=== PATIENT | male | born 1955 | race Caucasian/White ===

== ENCOUNTER 2018-01-06 17:26 | Emergency (ER) | payer OTHER, BC ==
[2018-01-06 17:37] VITALS: BP 135/85
--- NOTE | 2018-01-06 18:14 | XRAY Report ---
Procedure Date: 01/06/2018 Accession Number: [id number] / [id number] Procedure: XR - Shoulder 3 View LT CPT Code: FULL RESULT: EXAM: LEFT SHOULDER RADIOGRAPHY EXAM DATE: 01/06/2018 05:56 PM. CLINICAL HISTORY: Left shoulder pain after fall today. COMPARISON: None. TECHNIQUE: 3 views. FINDINGS: Bones: Normal. No fracture or bone lesion. Joints: The glenohumeral and acromioclavicular joints are normal. Type II acromion. Soft tissues: The visualized hemithorax is unremarkable. No soft tissue swelling. IMPRESSION: Normal shoulder radiography. [facility]
--- NOTE | 2018-01-06 18:38 | ED Physician Documentation ---
History of Present Illness - Stated complaint Stated Complaint: GLF/SHOULDER PX - Chief complaint Chief Complaint: Ext Problem - History obtained from History obtained from: Patient, Family - History of Present Illness Timing: Today, How many hours ago (2) Pain level max: 6 Pain level now: 4 Improved by: rest Worsened by: movement - Additonal information Additional information: L shoulder pain s/p fall at work today. Unable to use the L arm now. No history of L shoulder injury. Patient is ambidextrous. Review of Systems Constitutional: denies: Fever, Chills GI: denies: Vomiting Musculoskeletal: denies: Neck pain, Back pain Neurologic: denies: Focal weakness, Numbness, Headache PD PAST MEDICAL HISTORY - Past Medical History Past Medical History: No - Present Medications Home Medications: Ambulatory Orders Medication Instructions Recorded Confirmed No Known Home Medications [No 01/06/18 01/06/18 Known Home Medications] - Allergies Allergies/Adverse Reactions: Allergies Allergy/AdvReac Type Severity Reaction Status Date / Time codeine Allergy Hallucinati Verified 01/06/18 17:38 ons - Living Situation Living Situation: reports: With family Living Arrangement: reports: At home - Social History Does the pt have substance abuse?: No PD ED PE NORMAL - Vitals Vital signs reviewed: Yes - General General: Alert and oriented X 3, No acute distress - HEENT HEENT: Atraumatic, PERRL, Moist mucous membranes - Neck Neck: Supple, no meningeal sign, No bony TTP - Cardiac Cardiac: RRR - Respiratory Respiratory: No respiratory distress, Clear bilaterally - Derm Derm: Warm and dry - Extremities Extremities: Other (L shoulder - Mild diffuse tenderness, but does have significantly increased pain with active range of motion. Less pain with passive range of motion. No deformity. Neurovascularly intact. There is some tenderness along the glenohumeral joint. Axillary nerve intact.) - Neuro Neuro: Alert and oriented X 3 Results - Vitals Vitals: Vital Signs - 24 hr 01/06/18 17:35 Temperature 36.8 C Heart Rate 79 Respiratory 18 Rate Blood Pressure 135/85 H O2 Saturation 97 Oxygen O2 Source Room air - Rads (name of study) Left shoulder x-ray Radiology: Prelim report reviewed, EMP read contemporaneously, See rad report ( No acute abnormality) PD MEDICAL DECISION MAKING - ED course Complexity details: reviewed results, re-evaluated patient, considered differential, d/w patient ED course: Patient is a 62-year-old male with a left shoulder injury at work today. L and I paperwork filled out. Neurovascularly intact. Normal x-ray. Appears to be a soft tissue injury, sprain versus rotator cuff injury. We will have him follow-up with his doctor for further evaluation. Placed in a sling for comfort. Denies any pain medication here or for home. Patient counseled regarding signs and symptoms for which I believe and urgent re-evaluation would be necessary. Patient with good understanding of and agreement to plan and is comfortable going home at this time This document was made in part using voice recognition software. While efforts are made to proofread this document, sound alike and grammatical errors may occur. - Sepsis Event Vital Signs: Vital Signs - 24 hr 01/06/18 17:35 Temperature 36.8 C Heart Rate 79 Respiratory 18 Rate Blood Pressure 135/85 H O2 Saturation 97 Oxygen O2 Source Room air Departure - Departure Disposition: 01 Home, Self Care Clinical Impression: Sprain of shoulder, left Qualifiers: Encounter type: initial encounter Shoulder sprain type: unspecified sprain Qualified Code(s): S43.402A - Unspecified sprain of left shoulder joint, initial encounter Condition: Good Instructions: ED Sprain Shoulder Follow-Up: [facility] [Provider Group] [facility] [Provider Group] [facility] [Provider Group] Comments: Wear the sling for the next 3-4 days. Continue to gently range your shoulder while in the sling. Stop if this hurts. This should improve over the next week. Follow-up with your doctor or one of the clinics listed above for repeat evaluation after 1 week. Forms: Activity restrictions Discharge Date/Time: 01/06/18 18:47
== END 2018-01-06 18:47 | disposition home or self-care (01) ==
LOC: ED 17:26
DX: S43.402A Unspecified sprain of left shoulder joint, initial encounter (principal); W01.0XXA Fall on same level from slipping, tripping and stumbling without subsequent striking against object, initial encounter; Y93.89 Activity, other specified; Y99.0 Civilian activity done for income or pay
CPT/HCPCS: 99283

== ENCOUNTER 2020-03-30 08:38 | Day surgery (SDC) | payer BC ==
[2020-03-30] MEDS ORDERED: LACTATED RINGERS 1,000 ML IV ONE ×2 (09:18→11:19)
[2020-03-30] MEDS ORDERED: fentaNYL 250 MCG/5 ML VIAL IVP ONE (10:47)
[2020-03-30] MEDS ORDERED: MIDAZOLAM 2 MG/2 ML VIAL IVP ONE (10:47)
[2020-03-30 11:44] VITALS: BP 127/75
== END 2020-03-30 08:39 | disposition home or self-care (01) ==
LOC: SDS 08:38
PROVIDERS: ATTEND Surgery
DX: Z12.11 Encounter for screening for malignant neoplasm of colon (principal); K57.30 Diverticulosis of large intestine without perforation or abscess without bleeding
CPT/HCPCS: 45378; J3010; J7120

== ENCOUNTER 2021-06-30 20:42 | Emergency (ER) | payer MEDICARE, OTHER ==
[2021-06-30 20:49] VITALS: BP 160/72
[2021-06-30 21:03] LABS: RAPID STREP SCREEN Negative (Negative)
[2021-06-30] MEDS ORDERED: AMOX/CLAV 875 MG/125 MG TABLET PO STA (21:31)
[2021-06-30] MEDS ORDERED: LIDOCAINE VISCOUS 2% 15 ML UDC MM STA (21:32)
--- NOTE | 2021-06-30 21:34 | ED Physician Documentation ---
PD HPI HEENT - Stated complaint Stated Complaint: SORE THROAT - Chief complaint Chief Complaint: Heent - History obtained from History obtained from: Patient - Additional information Additional information: 66yM p/w throat pain, worse on the R, gradual onset and constant since yesterday afternoon. patient has chronic rhinorrhea and nasal congestion but denies cough or uri symptoms recently. does state he is having progressive constant aching pain in the throat, worse with swallowing. denies fevers, soa, stridor, cough. covid vaccinated. Review of Systems Constitutional: denies: Fever Throat: reports: Sore throat Respiratory: denies: Dyspnea, Cough PD PAST MEDICAL HISTORY - Past Medical History Past Medical History: Yes Cardiovascular: None Respiratory: None Endocrine/Autoimmune: None GI: None : None HEENT: None Psych: None Musculoskeletal: Osteoarthritis Derm: Psoriasis - Past Surgical History Past Surgical History: Yes General: Colonoscopy, Other Ortho: Shoulder arthroplasty, Arthroscopic surgery, Carpal Tunnel surgery HEENT: Cataracts - Present Medications Home Medications: Ambulatory Orders Medication Instructions Recorded Confirmed Amox/Clav 875/125 [Augmentin 1 tablet PO Q12H 7 Days #14 tablet 06/30/21 875/125 Tab] Gabapentin [Neurontin] 300 mg PO DAILY PRN 06/30/21 06/30/21 - Allergies Allergies/Adverse Reactions: Allergies Allergy/AdvReac Type Severity Reaction Status Date / Time codeine Allergy Hallucinati Verified 06/30/21 20:50 ons - Social History Does the pt smoke?: No Smoking Status: Never smoker Does the pt drink ETOH?: No Does the pt have substance abuse?: No - Immunizations Immunizations: TDAP >10years/unknown - POLST Patient has POLST: No PD ED PE NORMAL - Vitals Vital signs reviewed: Yes - General General: Alert and oriented X 3, No acute distress, Well developed/nourished - HEENT HEENT: Atraumatic, PERRL, EOMI, Moist mucous membranes, Other (mild R peritonsillar swelling. BL tonsillar mild enlargement) - Neck Neck: Supple, no meningeal sign, Other (normal upper airway sounds) Results - Vitals Vitals: Vital Signs - 24 hr 06/30/21 20:46 Temperature 36.7 C Heart Rate 66 Respiratory 16 Rate Blood Pressure 160/72 H O2 Saturation 97 Oxygen O2 Source Room air - Labs Labs: Laboratory Tests 06/30/21 20:51 Group A Strep Rapid Negative PD MEDICAL DECISION MAKING - ED course ED course: 66yM p/w tonsillar swelling and R peritonsillar mild irritation. patient is protecting airway, no stridor, no drooling, no submental tenderness or hardening. antibiotic rx provided. return precautions given. Departure - Departure Disposition: Home, Self Care Clinical Impression: Tonsillitis Condition: Good Instructions: ED Tonsillitis Follow-Up: JAY LOPEZ [Physician No Access] - Prescriptions: Amox/Clav 875/125 [Augmentin 875/125 Tab] 1 tablet PO Q12H 7 Days #14 tablet Comments: You were seen in the emergency department for swelling of the tonsils, worse on the right than the left. A first dose of antibiotics was given in the emergency department. Please follow up with Dr. Jay Lopez ([facility]) as needed if you do not have improvement with antibiotics in a few days. Return to the ED if you have new or worsening symptoms or other concerns.
== END 2021-06-30 21:47 | disposition home or self-care (01) ==
LOC: ED 20:42
DX: J03.90 Acute tonsillitis, unspecified (principal)
CPT/HCPCS: 87070; 87430; 99282; 99283; A9270

== ENCOUNTER 2021-07-26 10:06 | Emergency (ER) | payer MEDICARE, OTHER ==
[2021-07-26 10:24] VITALS: BP 118/64
[2021-07-26] MEDS ORDERED: SODIUM CHLORIDE 0.9% 1,000 ML IV STA (12:01)
[2021-07-26] MEDS ORDERED: DEXAMETHASONE 10 MG/ML VIAL IVP STA (12:02)
--- NOTE | 2021-07-26 12:35 | XRAY Report ---
PROCEDURE: Chest 1 View X-Ray INDICATIONS: chest pain TECHNIQUE: One view of the chest was acquired. COMPARISON: None. FINDINGS: SUPPORT DEVICES: None. LUNGS/PLEURA: Bilateral airspace opacities, concerning for pneumonic infiltrates. No pleural effusion or pneumothorax. MEDIASTINUM: The cardiomediastinal silhouette is within normal limits. BONES/SOFT TISSUES: No acute abnormality. IMPRESSION: 1.Bilateral pneumonic infiltrates. Reviewed by: Charan Mckenna MD on 07/26/2021 12:34 PM [facility] Approved by: Charan Mckenna MD on 07/26/2021 12:34 PM [facility] Station ID: [id number]
--- NOTE | 2021-07-26 12:48 | ED Physician Documentation ---
History of Present Illness - Stated complaint Stated Complaint: EXAUSTION,NAUSEA,SWEATING,COUGH - Chief complaint Chief Complaint: Resp - History obtained from History obtained from: Patient - History of Present Illness Timing: Today - Additonal information Additional information: 66-year-old male symptomatic with COVID symptoms for the past 11 days has had a positive COVID swab done 6 days ago and he is today feeling exhausted. He has nausea sweating and a cough. Review of Systems Constitutional: reports: Fever, Chills, Myalgias, Sweats Eyes: denies: Decreased vision Ears: denies: Ear pain Nose: reports: Congestion Throat: denies: Sore throat Cardiac: reports: Chest pain / pressure. denies: Palpitations, Pedal edema, Calf pain Respiratory: reports: Dyspnea, Cough GI: denies: Abdominal Pain, Nausea, Vomiting : reports: Dysuria. denies: Frequency PD PAST MEDICAL HISTORY - Past Medical History Cardiovascular: None Respiratory: None Endocrine/Autoimmune: None GI: None : None HEENT: None Psych: None Musculoskeletal: Osteoarthritis Derm: Psoriasis - Past Surgical History Past Surgical History: Yes General: Colonoscopy, Other Ortho: Shoulder arthroplasty, Arthroscopic surgery, Carpal Tunnel surgery HEENT: Cataracts - Present Medications Home Medications: Ambulatory Orders Medication Instructions Recorded Confirmed Amox/Clav 875/125 [Augmentin 1 tablet PO Q12H 7 Days #14 tablet 06/30/21 875/125 Tab] Gabapentin [Neurontin] 300 mg PO DAILY PRN 06/30/21 06/30/21 Azithromycin [Zithromax] 250 mg PO DAILY #6 tablet 07/26/21 Dexamethasone [Decadron] 6 mg PO DAILY #7 tablet 07/26/21 - Allergies Allergies/Adverse Reactions: Allergies Allergy/AdvReac Type Severity Reaction Status Date / Time codeine Allergy Hallucinati Verified 07/26/21 10:19 ons - Social History Does the pt smoke?: No Smoking Status: Never smoker Does the pt drink ETOH?: No Does the pt have substance abuse?: No - Immunizations Immunizations: TDAP >10years/unknown - POLST Patient has POLST: No PD ED PE NORMAL - Vitals Vital signs reviewed: Yes - General General: Alert and oriented X 3, No acute distress, Well developed/nourished - HEENT HEENT: Atraumatic, PERRL, EOMI - Neck Neck: Supple, no meningeal sign, No bony TTP - Cardiac Cardiac: RRR, No murmur - Respiratory Respiratory: Other (tachypneic with scattered wheezes.) - Abdomen Abdomen: Soft, Non tender - Back Back: No CVA TTP, No spinal TTP - Derm Derm: Normal color, Warm and dry, No rash - Extremities Extremities: No deformity, No edema - Neuro Neuro: Alert and oriented X 3, bar gauger and lubricator tender 2-12 intact, No motor deficit, No sensory deficit, Normal speech Eye Opening: Spontaneous Motor: Obeys Commands Verbal: Oriented GCS Score: 15 - Psych Psych: Normal mood, Normal affect Results - Vitals Vitals: Vital Signs - 24 hr 07/26/21 10:12 Temperature 36.9 C Heart Rate 62 Respiratory 24 Rate Blood Pressure 118/64 O2 Saturation 97 Oxygen O2 Source Room air - Labs Labs: Laboratory Tests 07/26/21 07/26/21 07/26/21 12:45 12:45 12:45 WBC 7.1 RBC 4.16 L Hgb 12.3 L Hct 36.5 L MCV 87.7 MCH 29.6 MCHC 33.7 RDW 11.7 L Plt Count 274 MPV 10.2 Neut # (Auto) 5.0 Lymph # (Auto) 1.0 L [place] # (Auto) 0.9 Eos # (Auto) 0.1 Baso # (Auto) 0.0 Absolute Nucleated RBC 0.00 Nucleated RBC % 0.0 Sodium 135 Potassium 4.0 Chloride 100 L Carbon Dioxide 26 Anion Gap 9.0 BUN 10 Creatinine 0.8 Estimated GFR (MDRD) 97 Glucose 100 Lactic Acid 1.0 Calcium 8.7 Total Bilirubin 0.7 AST 30 ALT 64 H Alkaline Phosphatase 52 Total Protein 6.9 Albumin 3.1 L Globulin 3.8 Albumin/Globulin Ratio 0.8 L Lipase 37 Urine Color Urine Clarity Urine pH Ur Specific [place] Urine Protein Urine Glucose (UA) Urine Ketones Urine Occult Blood Urine Nitrite Urine Bilirubin Urine Urobilinogen Ur Leukocyte Esterase Ur Microscopic Review Urine Culture Comments 07/26/21 13:20 WBC RBC Hgb Hct MCV MCH MCHC RDW Plt Count MPV Neut # (Auto) Lymph # (Auto) [place] # (Auto) Eos # (Auto) Baso # (Auto) Absolute Nucleated RBC Nucleated RBC % Sodium Potassium Chloride Carbon Dioxide Anion Gap BUN Creatinine Estimated GFR (MDRD) Glucose Lactic Acid Calcium Total Bilirubin AST ALT Alkaline Phosphatase Total Protein Albumin Globulin Albumin/Globulin Ratio Lipase Urine Color YELLOW Urine Clarity CLEAR Urine pH 8.0 H Ur Specific [place] 1.015 Urine Protein NEGATIVE Urine Glucose (UA) NEGATIVE Urine Ketones NEGATIVE Urine Occult Blood NEGATIVE Urine Nitrite NEGATIVE Urine Bilirubin NEGATIVE Urine Urobilinogen 2 H Ur Leukocyte Esterase NEGATIVE Ur Microscopic Review NOT INDICATED Urine Culture Comments NOT INDICATED - Rads (name of study) chest Radiology: Prelim report reviewed (Impression: 1. Bilateral pneumonic infiltrates.), EMP read indepedently, See rad report PD MEDICAL DECISION MAKING - ED course Complexity details: reviewed old records, reviewed results, re-evaluated patient, considered differential, d/w patient ED course: 66-year-old male on the 11th day of his COVID diagnosis is feeling fatigued continues to cough and is feeling weak. He appears dehydrated and his chest x- ray shows numerous pulmonic infiltrates. We will treat him for pneumonia as well and he has been given a dose of dexamethasone saline Rocephin and azithromycin. He responds to the IV saline as well. Departure - Departure Disposition: 01 Home, Self Care Clinical Impression: 2019 novel coronavirus-infected pneumonia (NCIP), Dehydration Condition: Stable Instructions: ED Pneumonia Adult, COVID-19 [facility], Flu and Cold: Nutrition, Prevention and Treatment Tips Follow-Up: Prem Hernandez DO [Primary Care Provider] - Prescriptions: Dexamethasone [Decadron] 6 mg PO DAILY #7 tablet Azithromycin [Zithromax] 250 mg PO DAILY #6 tablet Comments: Dago, today your chest x-ray has the appearance of COVID-pneumonia. We will need to add a conventional antibiotic to your treatment as it is difficult to tell whether there may be superinfection. This should be a simple antibiotic to take and you should only need to take this for 4 days. You do not need to start it until tomorrow. You were given a dose of dexamethasone here today and I have recommended you take another 6 mg daily for 1 week. We did find you were dehydrated today and recommendation is to drink extra fluids be certain to use Tylenol to treat fever as this will make you further dehydrated.
[2021-07-26] MEDS ORDERED: cefTRIAXone 1 GM in SODIUM CHLORIDE 0.9% MINIBAG 100 ML IV STA (12:51)
[2021-07-26] MEDS ORDERED: AZITHROMYCIN INJ 500 MG in SODIUM CHLORIDE 0.9% 250 ML IV STA (12:51)
[2021-07-26 12:54] LABS: BASOPHILS % (AUTO) 0.1 %; EOSINOPHILS # (AUTO) 0.1 10^3/uL (0.0-0.7); EOSINOPHILS % (AUTO) 1.8 %; HCT - HEMATOCRIT 36.5 % (42.0-52.0); HGB - HEMOGLOBIN 12.3 g/dL (14.0-18.0); LYMPHOCYTES % (AUTO) 13.5 %; MEAN CORPUSCULAR HEMOGLOBIN 29.6 pg (27.0-31.0); MEAN CORPUSCULAR HGB CONC 33.7 g/dL (32.0-36.0); MEAN CORPUSCULAR VOLUME 87.7 fL (80.0-94.0); MEAN PLATELET VOLUME 10.2 fL (7.4-11.4); MONOCYTES # (AUTO) 0.9 10^3/uL (0.0-1.0); MONOCYTES % (AUTO) 12.9 %; NEUTROPHILS % (AUTO) 71.3 %; PLT - PLATELET COUNT 274 10^3/uL (130-450); RED BLOOD COUNT 4.16 10^6/uL (4.70-6.10); RED CELL DISTRIBUTION WIDTH 11.7 % (12.0-15.0); WHITE BLOOD COUNT 7.1 x10^3/uL (4.8-10.8)
[2021-07-26 13:07] LABS: ALBUMIN 3.1 g/dL (3.2-5.5); ALBUMIN/GLOBULIN RATIO 0.8 (1.0-2.2); BILIRUBIN,TOTAL 0.7 mg/dL (0.2-1.0); CALCIUM 8.7 mg/dL (8.5-10.3); CREATININE 0.8 mg/dL (0.6-1.2); TOTAL PROTEIN 6.9 g/dL (6.7-8.2)
[2021-07-26 13:34] LABS: BILIRUBIN,URINE NEGATIVE (NEGATIVE); GLUCOSE, URINE (UA) NEGATIVE (NEGATIVE); KETONES,URINE (UA) NEGATIVE (NEGATIVE); LEUKOCYTE ESTERASE, URINE NEGATIVE (NEGATIVE); NITRITE,URINE NEGATIVE (NEGATIVE); OCCULT BLOOD,URINE NEGATIVE (NEGATIVE); PROTEIN,URINE NEGATIVE (NEGATIVE); UROBILINOGEN,URINE 2 E.U./dL (NORMAL)
[2021-07-26 13:52] LABS: CLARITY,URINE CLEAR (CLEAR)
== END 2021-07-26 14:55 | disposition home or self-care (01) ==
LOC: ED 10:06
DX: U07.1 COVID-19 (principal); J12.82 Pneumonia due to coronavirus disease 2019; E86.0 Dehydration
CPT/HCPCS: 36415; 80053; 81001; 81003; 83605; 83690; 85025; 87040; 87086; 96361; 96365; 96368; 96375; 99283

== ENCOUNTER 2023-07-22 08:24 | Day surgery (SDC) | payer MEDICARE, OTHER ==
[~2023-07-22 08:24] MED LIST: ceFAZolin 2 GM VIAL ONE
[2023-07-22] MEDS ORDERED: LIDOCAINE 2% URO-JET 5 ML SYRINGE UR ONE (08:38)
[2023-07-22] MEDS ORDERED: LACTATED RINGERS 1,000 ML IV ONE (09:10)
[2023-07-22] MEDS ORDERED: PROPOFOL 200 MG/20 ML VIAL IVP ONE (09:11)
[2023-07-22] MEDS ORDERED: LIDOCAINE-PF 2% 10 ML AMP SUBQ ONE (09:11)
[2023-07-22] MEDS ORDERED: ONDANSETRON 4 MG/2 ML VIAL ONE (09:11)
[2023-07-22] MEDS ORDERED: MIDAZOLAM 2 MG/2 ML VIAL ONE (09:11)
[2023-07-22] MEDS ORDERED: KETOROLAC 30 MG/ML VIAL ONE (09:11)
[2023-07-22] MEDS ORDERED: fentaNYL 100 MCG/2 ML VIAL ONE (09:12)
[2023-07-22] MEDS ORDERED: DEXAMETHASONE 4 MG/ML VIAL ONE (10:18)
[2023-07-22] MEDS ORDERED: LIDOCAINE 2% URO-JET 5 ML SYRINGE IV ONE (10:27)
[2023-07-22] MEDS ORDERED: SUGAMMADEX 200 MG/2 ML VIAL IVP ONE (10:36)
[2023-07-22] MEDS ORDERED: ROCURONIUM 50 MG/5 ML VIAL ONE (10:36)
--- NOTE | 2023-07-22 11:03 | ANESTHESIA ---
Pre-Anesthesia VS, & Labs - Diagnosis BPH - Procedure TURP Vital Signs: Temp Pulse Resp BP Pulse Ox O2 Flow Rate 36.4 C L 46 L 10 L 124/74 98 07/22/23 08:43 07/22/23 08:43 07/22/23 08:43 07/22/23 08:43 07/22/23 08:43 Height: 6 ft Weight (kg): 95 kg Body Mass Index: 28.4 BMI Classification: Overweight - NPO >8 hours Home Medications and Allergies Home Medications: Ambulatory Orders Rosuvastatin Calcium [Crestor] 40 mg PO DAILY 07/15/23 Gabapentin [Neurontin] 300 mg PO DAILY PRN 06/30/21 Rosuvastatin Calcium [Crestor] 40 mg PO DAILY 07/15/23 Allergies/Adverse Reactions: Allergies Allergy/AdvReac Type Severity Reaction Status Date / Time codeine Allergy Hallucinati Verified 07/22/23 08:56 ons Anes History & Medical History - Anesthetic History Anesthesia Complications: reports: No previous complications - Medical History Cardiovascular: reports: High cholesterol Pulmonary: reports: None Gastrointestinal: reports: None Urinary: reports: Benign prostate hypertrophy Neuro: reports: None Musculoskeletal: reports: Osteoarthritis Endocrine/Autoimmune: reports: None Blood Disorders: reports: None Skin: reports: Psoriasis Smoking Status: Never smoker Psychosocial: reports: No issues indicated History of Cancer?: No - Surgical History General: reports: Colonoscopy, Other Eyes Ears Nose Throat (EENT): reports: Cataracts Orthopedic: reports: Arthroscopic surgery, Carpal Tunnel surgery Exam General: Alert, Oriented x3, Cooperative, No acute distress Dental: WNL Mouth Openin Fingerbreadth Neck Mobility: Normal Mallampati classification: II Thyromental Distance: 4-6 cm Mental/Cognitive Status: Alert/Oriented X3, Normal for patient Plan Anesthesia Type: General Consent for Procedure(s) Verified and Reviewed: Yes Code Status: Attempt Resuscitation ASA classification: 2-Mild systemic disease Is this case an emergency?: No
[2023-07-22] MEDS ORDERED: MORPHINE 2 MG/ML CARPUJECT IVP PRN (11:08)
[2023-07-22] MEDS ORDERED: HYDROcod/ACETAM 5/325 MG TABLET PO PRN (11:08)
[2023-07-22] MEDS ORDERED: ONDANSETRON 4 MG/2 ML VIAL IVP PRN ×2 (11:08)
[2023-07-22] MEDS ORDERED: ATROPINE ABBOJECT 1 MG/10 ML SYRINGE IVP PRN (11:08)
[2023-07-22] MEDS ORDERED: HYDROmorphone 0.5 MG/0.5 ML SYRINGE IVP PRN (11:08)
[2023-07-22] MEDS ORDERED: fentaNYL 100 MCG/2 ML VIAL IVP PRN (11:08)
[2023-07-22] MEDS ORDERED: NALOXONE 0.4 MG/ML VIAL IVP PRN (11:08)
--- NOTE | 2023-07-22 11:18 | Discharge Plan ---
Discharge Plan Problem Reviewed?: Yes Disposition: Home, Self Care Condition: Good Prescriptions: Docusate Sodium 100Mg Capsule [Colace 100Mg Capsule] 100 mg PO DAILY #7 cap HYDROcod/ACETAM 5/325 [[place] 5/325] 1 tab PO Q4H PRN #10 tablet PRN Reason: Pain oxyBUTYnin chloride [Oxybutynin Chloride] 5 mg PO Q8H PRN #16 tab PRN Reason: Bladder Spasms Diet: Regular Activity Restrictions: No Restrictions Shower Restrictions: No (no bathing with catheter in place) Driving Restrictions: No Instruction Topics: Catheter Indwelling Urinary Dc, Catheter Bag Urinary Empty Clean, Leg Bag Care Dc No Smoking: If you smoke, Please STOP! Call for help. Follow-up with: MONICO OBRIEN PA [Primary Care Provider] - Jose Enrique Barragan MD [Provider Admit Priv/Credential] -
--- NOTE | 2023-07-22 11:22 | OPERATIVE REPORT ---
Operative Report - General Procedure Date: 07/22/23 Planned Procedure: Transurethral resection of prostate Pre-Op Diagnosis: BPH with LUTS Procedure Performed: Transurethral resection of prostate Post Op Diagnosis: BPH with LUTS - Procedure Note Primary Surgeon: Yung Anesthesia Provider: PAUL Lopez Anesthesia Technique: General LMA Pathology: prostate chips Estimated Blood Loss (mL): 20 Findings: Trilobar hypertrophy Complications: none - Other Other Information/Narrative: After informed consent was obtained the patient was brought to the OR and laid in the supine position. At that point time the patient was anesthetized per anesthesia protocols and prepped and draped in usual sterile fashion he was placed in the dorsolithotomy position. A formal timeout was performed reconfirming the patient and procedure. A 26 Canadian resectoscope was advanced easily into the urinary bladder. He was noted to have a large prostate with a large median lobe. There were no mucosal abnormalities. Using loop electrocautery on the bipolar setting we took down the 5:00 and 7:00 canals resecting the prostate to the level of the verumontanum. We then took down the median lobe between these 2 canals. Spot cautery was used for hemostasis periodically. Attention was paid to the left sided lateral lobe hypertrophy which was then resected until a small amount of fat could be seen. Attention was paid to the right side where it was similarly resected. The prostate chips were evacuated. Spot cautery was used for hemostasis. The ureteral orifices were identified and were not injured during this procedure. We did not resect distal to the verumontanum. A Uro-Jet was placed and then a 22 Canadian three-way Zavaleta catheter was placed with 40 cc in the balloon. He was placed on gentle continuous bladder irrigation and the urine effluent was clear. This concluded the procedure the patient tolerated the procedure well. He was brought to the PACU without further incident. He will go home later today with catheter in place. Plan will be to remove the catheter on or Saturday.
[2023-07-22] MEDS ORDERED: LACTATED RINGERS 800 ML IV ONE (11:37)
[2023-07-22 11:47] VITALS: O2SAT 97
[2023-07-22] MEDS ORDERED: LACTATED RINGERS 1,000 ML IV SCH (12:00)
[2023-07-22 12:42] VITALS: BP 122/70
--- NOTE | 2023-07-22 15:54 | ANESTHESIA POST OP EVALUATION ---
Anesthesia Post Eval - Post Anesthesia Eval Vitals: Last Vital Signs Temp 36.1 C L 07/22/23 12:36 Pulse 47 L 07/22/23 12:36 Resp 12 07/22/23 12:36 BP 122/70 07/22/23 12:36 Pulse Ox 97 07/22/23 12:36 O2 Flow Rate CV Function Including HR & BP: Stable Pain Control: Satisfactory Nausea & Vomiting: Negative Mental Status: Baseline Respiratory Status: Airway Patent Hydration Status: Satisfactory Anesthesia Complications: None
== END 2023-07-22 08:25 | disposition home or self-care (01) ==
LOC: SDS 08:24
PROVIDERS: ATTEND Urology
PROC: 0VT08ZZ Resection of Prostate, Via Natural or Artificial Opening Endoscopic (ICD-10-PCS; principal; 2023-07-22 09:30)
DX: N40.1 Benign prostatic hyperplasia with lower urinary tract symptoms (principal)
CPT/HCPCS: 52601; J7120